=== PATIENT | male | born 1970 | race Caucasian/White ===

== ENCOUNTER 2019-01-01 02:38 | Emergency (ER) | payer BC ==
[~2019-01-01] VITALS: Ht 182.9 cm; Wt 108.9 kg
[2019-01-01] MEDS ORDERED: Prinivil10 MG PO (04:31)
== END 2019-01-01 05:12 | disposition home or self-care (01) ==
LOC: ER 02:38
DX: S89.91XA Unspecified injury of right lower leg, initial encounter (principal); I10 Essential (primary) hypertension; Z88.0 Allergy status to penicillin; X58.XXXA Exposure to other specified factors, initial encounter; Y93.61 Activity, american tackle football
CPT/HCPCS: 73562-RT; 99283-25

== ENCOUNTER 2022-01-18 09:22 | Emergency (ER) | payer BC ==
[~2022-01-18] VITALS: Ht 185.4 cm; Wt 113.4 kg
[~2022-01-18 09:22] MED LIST: Prinivil10 MG PO
[2022-01-18 10:23] LABS: BASOPHILS ABSOLUTE AUTO 0.09 K/mm3 (0.00-0.23); BASOPHILS PERCENT AUTO 2 % (0-2); EOSINOPHILS ABSOLUTE AUTO 0.11 K/mm3 (0.00-0.68); EOSINOPHILS PERCENT AUTO 2 % (0-6); Hematocrit 53.7 % (37.0-53.0); IMMATURE GRAN ABSOLUTE AUTO 0.03 K/mm3 (0.00-0.10); IMMATURE GRAN PERCENT AUTO 1 % (0-1); LYMPHOCYTES ABSOLUTE AUTO 1.13 K/mm3 (0.84-5.20); LYMPHOCYTES PERCENT AUTO 19 % (21-46); MONOCYTES ABSOLUTE AUTO 0.54 K/mm3 (0.16-1.47); MONOCYTES PERCENT AUTO 9 % (4-13); Mean Corpuscular HGB Conc 35.4 g/dL (31.5-36.5); Mean Corpuscular Volume 82 fL (80-100); NEUTROPHILS ABSOLUTE AUTO 3.92 K/mm3 (1.96-9.15); NEUTROPHILS PERCENT AUTO 67 % (41-73); Platelet Count 192 K/mm3 (150-400); RDW Coefficient Variation 12.5 % (11.7-14.2); RDW Standard Deviation 36.8 fL (35.1-46.3); Red Blood Cell Count 6.55 M/mm3 (4.30-5.90); White Blood Cell Count 5.82 K/mm3 (4.00-11.30)
[2022-01-18 10:44] LABS: Albumin, Blood 4.1 g/dL (3.4-5.0); Bilirubin, Total 0.9 mg/dL (0.1-1.0); Bun/Creatinine Ratio 19.8 (12.0-20.0); Calcium, Blood 9.1 mg/dL (8.5-10.1); Creatinine, Blood 0.86 mg/dL (0.60-1.20); Globulin, Blood 4.1 g/dL (2.2-4.0); Magnesium, Blood 1.9 mg/dL (1.6-2.4); Potassium, Blood 4.1 mmol/L (3.5-5.5); Thyroid Stimulating Hormone 1.06 uIU/mL (0.360-4.800); Total Protein, Blood 8.2 g/dL (6.4-8.2)
[2022-01-18] MEDS ORDERED: Prinivil10 MG PO (12:09)
== END 2022-01-18 12:35 | disposition home or self-care (01) ==
LOC: ER 09:22
PROVIDERS: Emergency Medicine
DX: I10 Essential (primary) hypertension (principal); I16.0 Hypertensive urgency; R00.2 Palpitations; F17.200 Nicotine dependence, unspecified, uncomplicated
CPT/HCPCS: 36415; 71045; 80053; 83735; 84443; 84484; 85025; 93005; 93010; 93246; A9270

== ENCOUNTER 2022-12-15 07:08 | Emergency (ER) | payer SELFPAY ==
[~2022-12-15] VITALS: Ht 185.4 cm; Wt 113.4 kg
[2022-12-15 07:50] VITALS: BP 198/128
[2022-12-15 08:29] LABS: BASOPHILS ABSOLUTE AUTO 0.04 K/mm3 (0.00-0.23); BASOPHILS PERCENT AUTO 1 % (0-2); EOSINOPHILS ABSOLUTE AUTO 0.19 K/mm3 (0.00-0.68); EOSINOPHILS PERCENT AUTO 3 % (0-6); Hematocrit 47.9 % (37.0-53.0); Hemoglobin 17.1 g/dL (13.5-17.5); IMMATURE GRAN ABSOLUTE AUTO 0.03 K/mm3 (0.00-0.10); IMMATURE GRAN PERCENT AUTO 1 % (0-1); LYMPHOCYTES ABSOLUTE AUTO 1.09 K/mm3 (0.84-5.20); LYMPHOCYTES PERCENT AUTO 17 % (21-46); MONOCYTES ABSOLUTE AUTO 0.46 K/mm3 (0.16-1.47); MONOCYTES PERCENT AUTO 7 % (4-13); Mean Corpuscular HGB 29.4 pg (26.0-34.0); Mean Corpuscular HGB Conc 35.7 g/dL (31.5-36.5); Mean Corpuscular Volume 82 fL (80-100); Mean Platelet Volume 11.3 fL (9.1-12.4); NEUTROPHILS ABSOLUTE AUTO 4.44 K/mm3 (1.96-9.15); NEUTROPHILS PERCENT AUTO 71 % (41-73); Platelet Count 160 K/mm3 (150-400); RDW Coefficient Variation 12.5 % (11.7-14.2); RDW Standard Deviation 37.4 fL (35.1-46.3); Red Blood Cell Count 5.82 M/mm3 (4.30-5.90); White Blood Cell Count 6.25 K/mm3 (4.00-11.30)
[2022-12-15] MEDS ORDERED: LISI20 PO (08:29)
[2022-12-15] MEDS ORDERED: ATOR10 PO (08:29)
[2022-12-15 08:43] LABS: Albumin, Blood 3.7 g/dL (3.4-5.0); Bilirubin, Total 0.9 mg/dL (0.1-1.0); Calcium, Blood 8.6 mg/dL (8.5-10.1); Creatinine, Blood 0.76 mg/dL (0.60-1.20); Globulin, Blood 3.7 g/dL (2.2-4.0); Magnesium, Blood 1.8 mg/dL (1.6-2.4); Potassium, Blood 3.8 mmol/L (3.5-5.5); Total Protein, Blood 7.4 g/dL (6.4-8.2)
== END 2022-12-15 10:44 | disposition home or self-care (01) ==
LOC: ER 07:08
PROVIDERS: Student in an Organized Health Care Education/Training Program
DX: R55 Syncope and collapse (principal); R00.2 Palpitations; R42 Dizziness and giddiness; Z72.820 Sleep deprivation; Z88.0 Allergy status to penicillin; F17.220 Nicotine dependence, chewing tobacco, uncomplicated; I10 Essential (primary) hypertension
CPT/HCPCS: 71046; 80053; 83735; 85025; 93005; 93010; 96361; 96365; 99284-25; A9270; J3475; J7030

== ENCOUNTER 2023-09-27 14:45 | Inpatient (IN) | payer SELFPAY ==
[~2023-09-27] VITALS: Ht 182.9 cm; Wt 113.5 kg
[~2023-09-27 14:45] MED LIST changes: +ATOR10 PO; +LISI20 PO
[2023-09-27 15:05] LABS: BASOPHILS ABSOLUTE AUTO 0.08 K/mm3 (0.00-0.23); BASOPHILS PERCENT AUTO 1 % (0-2); EOSINOPHILS ABSOLUTE AUTO 0.16 K/mm3 (0.00-0.68); EOSINOPHILS PERCENT AUTO 2 % (0-6); Hematocrit 49.6 % (37.0-53.0); IMMATURE GRAN ABSOLUTE AUTO 0.06 K/mm3 (0.00-0.10); IMMATURE GRAN PERCENT AUTO 1 % (0-1); LYMPHOCYTES ABSOLUTE AUTO 2.31 K/mm3 (0.84-5.20); LYMPHOCYTES PERCENT AUTO 24 % (21-46); MONOCYTES ABSOLUTE AUTO 0.86 K/mm3 (0.16-1.47); MONOCYTES PERCENT AUTO 9 % (4-13); Mean Corpuscular HGB 29.7 pg (26.0-34.0); Mean Corpuscular HGB Conc 36.3 g/dL (31.5-36.5); Mean Corpuscular Volume 82 fL (80-100); Mean Platelet Volume 11.2 fL (9.1-12.4); NEUTROPHILS PERCENT AUTO 64 % (41-73); Platelet Count 223 K/mm3 (150-400); RDW Coefficient Variation 12.5 % (11.7-14.2); RDW Standard Deviation 36.7 fL (35.1-46.3); Red Blood Cell Count 6.06 M/mm3 (4.30-5.90); White Blood Cell Count 9.67 K/mm3 (4.00-11.30)
[2023-09-27] MEDS ORDERED: Ondansetron HCl 2 MG / ML 2ML Vial IV ONE (15:30)
[2023-09-27 15:37] LABS: Alanine Aminotransfer (ALT/SGP 51 U/L (12-78); Albumin, Blood 4.1 g/dL (3.4-5.0); Albumin/Globulin Ratio 1.1 (0.8-1.8); Alk Phos 104 U/L (50-136); Anion Gap 11 mmol/L (3-11); Aspartate Aminotrans (AST/SGOT 47 U/L (12-37); Bilirubin, Total 0.7 mg/dL (0.1-1.0); Blood Urea Nitrogen 19 mg/dL (8-24); Bun/Creatinine Ratio 17.1 (12.0-20.0); CO2, Blood 22 mmol/L (21-32); Calcium, Blood 8.3 mg/dL (8.5-10.1); Chloride, Blood 108 mmol/L (98-108); Cholesterol 278 mg/dL (50-200); Creatinine, Blood 1.11 mg/dL (0.60-1.20); Globulin, Blood 3.9 g/dL (2.2-4.0); Glomerular Filtration Rate 80 (60-); Glucose, Blood 146 mg/dL (70-99); HDL Cholesterol 31 mg/dL (>39); LDL/HDL RATIO Unable to Calculate; Low Density Lipoprotein Chol Unable to Calculate mg/dL (0-110); Magnesium, Blood 1.9 mg/dL (1.6-2.4); Sodium, Blood 137 mmol/L (136-145); Triglycerides 648 mg/dL (30-160); Very Low Density Lipoprot Chol Unable to Calculate mg/dL (6-32)
[2023-09-27] MEDS ORDERED: Acetaminophen 325 MG TABLET PO PRN (16:30)
[2023-09-27] MEDS ORDERED: Nicotine Polacrilex 2 MG Gum PO PRN (16:30)
[2023-09-27 18:31] VITALS: BP 155/126
--- NOTE | 2023-09-27 18:54 | NUR ---
ADMIT PT ARRIVED TO PCU 2 AT 1830 VIA BED. PT STOOD UP TO TRANSFER TO PCU BED. PT IS ALERT AND ORIENTED. PT DENIES CHEST PAIN OR DISCOMFORT AT THIS TIME. VITAL SIGNS STABLE. PT ON ROOM AIR. AMIODARONE GTT INFUSING AT 1 MG/MIN. PT SPOUSE AT BEDSIDE. WILL CONTINUE TO MONITOR AND REPORT OFF TO ONCOMING RN.
[2023-09-27 19:26] LABS: Anti-Xa UFH, PHA Monitoring <0.10 IU/mL; International Normalized Ratio 1.03
[2023-09-27] MEDS ORDERED: Heparin Sodium,Porcine/0.5 NS 500 ML IV SCH (19:45)
[2023-09-27 20:10] VITALS: BP 144/107
[2023-09-27 22:00] VITALS: BP 125/96
[2023-09-27 22:30] VITALS: BP 135/105
[2023-09-27 23:00] VITALS: BP 134/123
[2023-09-27 23:30] VITALS: BP 138/108
[2023-09-28] VITALS (8 sets, daily range): BP systolic 122–152; BP diastolic 78–105
[2023-09-28 02:21] LABS: BASOPHILS ABSOLUTE AUTO 0.06 K/mm3 (0.00-0.23); BASOPHILS PERCENT AUTO 1 % (0-2); EOSINOPHILS ABSOLUTE AUTO 0.18 K/mm3 (0.00-0.68); EOSINOPHILS PERCENT AUTO 2 % (0-6); Hematocrit 47.9 % (37.0-53.0); Hemoglobin 17.1 g/dL (13.5-17.5); IMMATURE GRAN ABSOLUTE AUTO 0.06 K/mm3 (0.00-0.10); IMMATURE GRAN PERCENT AUTO 1 % (0-1); LYMPHOCYTES ABSOLUTE AUTO 2.47 K/mm3 (0.84-5.20); LYMPHOCYTES PERCENT AUTO 27 % (21-46); MONOCYTES ABSOLUTE AUTO 0.88 K/mm3 (0.16-1.47); MONOCYTES PERCENT AUTO 10 % (4-13); Mean Corpuscular HGB 29.5 pg (26.0-34.0); Mean Corpuscular HGB Conc 35.7 g/dL (31.5-36.5); Mean Corpuscular Volume 83 fL (80-100); Mean Platelet Volume 11.1 fL (9.1-12.4); NEUTROPHILS ABSOLUTE AUTO 5.42 K/mm3 (1.96-9.15); NEUTROPHILS PERCENT AUTO 60 % (41-73); Platelet Count 184 K/mm3 (150-400); RDW Coefficient Variation 12.9 % (11.7-14.2); RDW Standard Deviation 38.5 fL (35.1-46.3); White Blood Cell Count 9.07 K/mm3 (4.00-11.30)
[2023-09-28 02:39] LABS: Bun/Creatinine Ratio 17.1 (12.0-20.0); Calcium, Blood 8.4 mg/dL (8.5-10.1); Creatinine, Blood 0.99 mg/dL (0.60-1.20); Magnesium, Blood 2.1 mg/dL (1.6-2.4); Potassium, Blood 3.7 mmol/L (3.5-5.5)
[2023-09-28] MEDS ORDERED: Clarify Drug Order XX ONE (03:10)
--- NOTE | 2023-09-28 04:19 | NUR ---
SPOKE WITH DR. LOVE. PT HR HAS BEEN SETTLING IN THE LOW 50s OCCASIONALLY BRIEFLY TOUCHING THE 40s. PT CURRENTLY ON AMIO DRIP @ 16.6 MLS/HR. ORDERED TO STOP AMIO DRIP FOR TIME BEING AND REASSESS IN A COUPLE HOURS. STOPPING NOW AND WILL REASSESS IN 2 HOURS. CONTINUING TO MONITOR.
--- NOTE | 2023-09-28 04:34 | NUR ---
SHIFT SUMMARY. SHIFT HAS BEEN UNREMARKABLE. PT AOX4, PLEASANT, COOPERATIVE WITH CARE, CALLS APPROPRIATELY, ABLE TO MAKE NEEDS KNOWN. HAS CONTINUED TO DENY CHEST PAIN THROUGHOUT SHIFT. HAS BEEN RUNNING SINUS RHYTHM THROUGHOUT SHIFT. HAS BEEN RUNNING CHERYLE THROUGHOUT THIS MORNING, SEE RELATED NOTE FOR DETAILS. AMIO DRIP AND HEPARIN BOTH RUNNING THROUGHOUT MOST OF SHIFT. HAS SLEPT THROUGHOUT MOST OF SHIFT. TRANSFERS WELL TO BATHROOM WITH ONLY MINIMAL ASSISTANCE FOR LINE MANAGEMENT. BED LOCKED IN LOWEST POSITION. CALL LIGHT LEFT WTIHIN REACH. CONTINUING TO MONITOR.
[2023-09-28] MEDS ORDERED: Lisinopril 20 MG Tab PO SCH (09:00)
[2023-09-28] MEDS ORDERED: Atorvastatin 40 MG Tab PO SCH (09:00)
[2023-09-28] MEDS ORDERED: Enoxaparin 40 MG/0.4 ML SYR SC SCH (09:00)
[2023-09-28] MEDS ORDERED: Aspirin 81 MG Chew PO SCH (09:00)
[2023-09-28] MEDS ORDERED: Dose Adjust by Pharmacy XX STA (09:22)
[2023-09-28] MEDS ORDERED: Verapamil HCL 2.5 MG/ML 2ML Injection ONE (10:34)
[2023-09-28] MEDS ORDERED: NS 2,000 ML IV ONE (10:35)
[2023-09-28] MEDS ORDERED: Heparin Sodium 1000 Units/ML 10ML MDV ONE (10:35)
[2023-09-28] MEDS ORDERED: FentaNYL Citrate 50 MCG/ML 2 ML Injection ONE (10:35)
[2023-09-28] MEDS ORDERED: Midazolam HCl 1MG / ML 2ML Vial ONE (10:35)
[2023-09-28] MEDS ORDERED: NS 250 ML IV ONE (10:35)
[2023-09-28] MEDS ORDERED: Tirofiban HCL Monohydrate 3.75 MG/15 ML Vial ONE (11:34)
[2023-09-28] MEDS ORDERED: Labetalol HCL 100 MG TAB PO SCH ×2 (12:30→21:00)
--- NOTE | 2023-09-28 15:10 | NUR ---
ASSUMED CARE OF PT AT 0700 THIS AM. PT HAS BEEN NPO SINCE MIDNIGHT IN ANTICIPATION OF ANGIOGRAM TODAY. PT IS AWAKE, ALERT, ORIENTED X 4, ABLE TO USE CALL LIGHT AND MAKE NEEDS KNOWN. PT IS NOTED TO BE HYPERTENSIVE, THIS WAS LATER ADDRESSED BY DR VARMA POST [facility]. PT WENT TO [facility] @ 1103 AND RETURNED TO ROOM @ 1205. TR BAND WNL, NO STENTS PLACED PER REPORT FROM [employer] [employer] STAFF. PLAN IS FOR PT TO BE DISCHARGED TOMORROW WITH A LIFE VEST AND FOLLOW UP WITH [employer]ER GOODS INSPECTOR IN [place] FOR DEFIBULATOR PLACEMENT. PT HAS DENIED CHEST PAIN OR PRESSURE T/O THE SHIFT. TR BAND TO R WRIST FULLY RECOVERED WITHOUT ANY COMPLICATIONS NOTED. NO ACUTE CHANGES IN PT STATUS SINCE ASSUMPTION OF CARE THIS AM. WILL CONTINUE TO MONITOR.
--- NOTE | 2023-09-28 18:15 | NUR ---
NO CHANGES SINCE LAST NOTE. R TR BAND SITE REMAINS WNL. PT HAS BEEN RESTING COMFORTABLY IN BED WITH NO COMPLAINTS/NEEDS. PER [employer]ILI PEPPER GRINDER ABHIJIT, PT WILL BE FITTED FOR A LIFE VEST DEFIBRILATOR TOMORROW AFTERNOON PRIOR TO DISCHARGE. PT IS ABLE TO USE CALL LIGHT/MAKE NEEDS KNOWN. CALL LIGHT IN REACH. WILL CONTINUE TO MONTIOR AND GIVE REPORT TO NOC YAMILET RN.
[2023-09-29 04:03] VITALS: BP 136/92
[2023-09-29 04:09] LABS: BASOPHILS ABSOLUTE AUTO 0.07 K/mm3 (0.00-0.23); BASOPHILS PERCENT AUTO 1 % (0-2); EOSINOPHILS ABSOLUTE AUTO 0.18 K/mm3 (0.00-0.68); EOSINOPHILS PERCENT AUTO 2 % (0-6); Hematocrit 48.1 % (37.0-53.0); Hemoglobin 16.5 g/dL (13.5-17.5); IMMATURE GRAN ABSOLUTE AUTO 0.05 K/mm3 (0.00-0.10); IMMATURE GRAN PERCENT AUTO 1 % (0-1); LYMPHOCYTES ABSOLUTE AUTO 1.73 K/mm3 (0.84-5.20); LYMPHOCYTES PERCENT AUTO 21 % (21-46); MONOCYTES ABSOLUTE AUTO 0.93 K/mm3 (0.16-1.47); MONOCYTES PERCENT AUTO 11 % (4-13); Mean Corpuscular HGB 29.1 pg (26.0-34.0); Mean Corpuscular HGB Conc 34.3 g/dL (31.5-36.5); Mean Corpuscular Volume 85 fL (80-100); Mean Platelet Volume 11.4 fL (9.1-12.4); NEUTROPHILS ABSOLUTE AUTO 5.49 K/mm3 (1.96-9.15); NEUTROPHILS PERCENT AUTO 65 % (41-73); Platelet Count 168 K/mm3 (150-400); RDW Coefficient Variation 12.9 % (11.7-14.2); Red Blood Cell Count 5.67 M/mm3 (4.30-5.90); White Blood Cell Count 8.45 K/mm3 (4.00-11.30)
--- NOTE | 2023-09-29 05:49 | NUR ---
SHIFT SUMMARY. SHIFT HAS BEEN UNREMARKABLE, PT HAS SLEPT THROUGHOUT MOST OF SHIFT. PT AOX4, PLEASANT, COOPERATIVE WITH CARE, CALLS APPROPRIATELY, ABLE TO MAKE NEEDS KNOWN. VITALS STABLE. TELE ON THROUGHOUT SHIFT WITH NO ACUTE CHANGES OR EVENTS. CONTINUES TO DENY CHEST PAIN OR PRESSURE OF ANY KIND. INDEPENDENT WITHIN ROOM. BED LOCKED IN LOWEST POSITION. CALL LIGHT LEFT WITHIN REACH. CONTINUING TO MONITOR.
[2023-09-29 09:16] VITALS: BP 142/105
--- NOTE | 2023-09-29 10:58 | NUR ---
ASSUMED CARE OF PT AT 0700 THIS AM. NO ACUTE CHANGES REPORTED OVERNIGHT. PT DENIES CHEST PAIN, PRESSURE OR PALPITATIONS, HAS REMAINED IN SR. PLAN FOR TODAY IS TO DISCHARGE AFTER LIFE VEST ARRIVES. LIFE VEST MOLD YARN SUPERVISOR CALLED AND SPOKE WITH CHARGE NURSE ESDRAS, ACCORDING TO HIM, PT DOES NOT HAVE INSURANCE. PT/ STATES THEY DO HAVE INSURANCE AND PRODUCED INSURANCE CARD, NUMBERS IN CHART MATCH. JOS FROM CASE MANAGEMENT CONTACTED TO INVESTIGATE FURTHER. DISCHARGE ON HOLD UNTIL PT HAS LIFE VEST. SPOKE W DR VANN AND UPDATED HER ON SITUATION WELL CONCERNS ABOUT BLOOD PRESSURE CONTROL. NO NEW ORDERS. THIS RN WILL CONTACT DR VARMA TO UPDATE ON BP GOALS. CASE MANAGEMENT STATES THEY ARE UNABLE TO VERIFY INSURANCE. PT INSTRUCTED TO CALL INSURANCE PROVIDER FIRST THING TOMORROW AM FOR UO-TO-DATE INSURANCE NUMBERS. PT EDUCATED ABOUT RISKS OF LEAVING HOSPITAL WITHOUT LIFE VEST, PT VERBALIZES UNDERSTANDING AND AGREES TO STAY. PT STATES HE HAS NO OTHER NEEDS AT THIS TIME, CALL LIGHT IN REACH. WILL CONTINUE TO MONITOR.
[2023-09-29 11:25] VITALS: BP 152/108
--- NOTE | 2023-09-29 11:29 | NUR ---
DR VARMA CONTACTED ABOUT PT'S BPs. HE DOES NOT WANT TO CHANGE BP MEDS AT THIS TIME. PT UPDATED. CALL LIGHT IN REACH, WILL CONTINUE TO MONITOR.
[2023-09-29 15:45] VITALS: BP 162/112
[2023-09-29] MEDS ORDERED: Enoxaparin 40 MG/0.4 ML SYR SC SCH (16:00)
--- NOTE | 2023-09-29 18:02 | NUR ---
NO ACUTE CHANGES SINCE LAST NOTE. PT DENIES CHEST PAIN, PRESSURE OR PALPITATIONS. BLOOD PRESSURES HAVE REMAINED HIGH T/O THE DAY, PT DENIES SYMPTOMS. PLAN CONTINUES TO BE FOR PT TO DISCHARGE TOMORROW ONCE INSURANCE IS CLARIFIED AND LIFE VEST IS DELIVERED. NO NEEDS AT THIS TIME. CALL LIGHT IN REACH. WILL CONTINUE TO MONITOR AND GIVE REPORT TO NOC SHIFT RN.
[2023-09-29 20:00] VITALS: BP 151/102
[2023-09-29] MEDS ORDERED: HydrALAZINE HCl 10 MG Tab PO SCH (21:00)
[2023-09-30] VITALS: BP 139/101
[2023-09-30 04:00] VITALS: BP 146/105
--- NOTE | 2023-09-30 06:09 | NUR ---
SHIFT SUMMARY PT A&O X4, PLEASANT AND COOPERATIVE WITH CARE. VS; SBP 139-151, DBP 100 - 105, HRR SR IN 80'S, AFEBRILE, SPO2 GREATER THAN 96% ON RA. ONE TELE EVENT THIS SHIFT; AROUND 0020 PT HAD 6 BEAT RUN OF [place]. PT WAS ASLEEP IN ROOM WHEN EVENT, THIS RN ROUNDED. PT DENIES SX. NO EVENTS OF CP/PRESSURE, SOB, DIZZINESS, PALPITATIONS, N/V. PT C/O OF PAIN THAT IS "SORE AND THROBBING" IN R RADIAL SITE POST ANGIO. NO HEMATOMA NOTED. PT DENIES NUMBNESS, TINGLING. CAP REFILL WNL, COLOR WNL, PT ABLE TO MOVE FINGERS OKAY BUT C/O PAIN WHEN DOING SO. ARMBOARD STILL IN PLACE, OTHERWISE SITE IS FULLY RECOVERED. PT INDEPENDENT IN THE ROOM AND USES RESTROOM IND. PT REPORTS HAVING NORMAL BM THIS SHIFT. CALL LIGHT IN REACH, PT ABLE TO MAKE NEEDS KNOWN.
[2023-09-30 07:21] VITALS: BP 156/107
[2023-09-30 09:28] LABS: Phosphorus, Blood 2.7 mg/dL (2.5-4.9)
[2023-09-30 11:23] VITALS: BP 136/104
[2023-09-30] MEDS ORDERED: ASPI81CH PO (12:44)
[2023-09-30] MEDS ORDERED: LIPITOR80 MG PO ×2 (12:46→14:36)
[2023-09-30] MEDS ORDERED: LABE200 PO (12:53)
--- NOTE | 2023-09-30 13:06 | NUR ---
Upon receiving a referral for spiritual care, I visited the patient. He tells me about the events that led to his admission to the hospital and the current medical plan of care. He tells me about his struggles with his medical insurance from work at [employer] and while he was voicing his concerns he got a call from his union rep. to talk about how they need to proceed to deal with the insurance issues. The patient was glad to take the call and I exit to allow the patient to talk on the phone. i will continue to remain available to patient and family.
[2023-09-30 15:50] VITALS: BP 132/95
--- NOTE | 2023-09-30 18:06 | NUR ---
SHIFT SUMMARY; ASSUMED CARE AT 0700. A/A/OX4 IN NO DISTRESS. RIGHT WRIST ANGIO SITE WITH TEGADERM, NO BRUSING OR SWELLING. C/O RIGHT FOREARM PAIN AND RIGHT HAND PAIN. RADIAL PULSE PALPABLE, CAP REFILL <3. MOVES FINGERS BUT STATES FEELS STIFF. EVALUATED BY DR. VARMA 2X DURING SHIFT. VSS, MEDS PER EMAR. PLEASANT AND COOPERATIVE WITH CARE. ZOLE VEST FITTED PRIOR TO DISCHARGE. DC'D WITH SPOUSE, BELONGINGS AND [employer]LE EQUIPMENT WITH CLEAR UNDERSTANDING OF INSTRUCTIONS.
== END 2023-09-30 17:46 | disposition home or self-care (01) | DRG 321 ==
LOC: ER 14:45 → PCU 16:26
PROVIDERS: Emergency Medicine; Internal Medicine; ADMIT Family Medicine
PROC: 5A2204Z Restoration of Cardiac Rhythm, Single (ICD-10-PCS; 2023-09-27)
PROC: 027034Z Dilation of Coronary Artery, One Artery with Drug-eluting Intraluminal Device, Percutaneous Approach (ICD-10-PCS; principal; 2023-09-28)
PROC: 02C03ZZ Extirpation of Matter from Coronary Artery, One Artery, Percutaneous Approach (ICD-10-PCS; 2023-09-28)
PROC: B2111ZZ Fluoroscopy of Multiple Coronary Arteries using Low Osmolar Contrast (ICD-10-PCS; 2023-09-28)
PROC: 4A023N7 Measurement of Cardiac Sampling and Pressure, Left Heart, Percutaneous Approach (ICD-10-PCS; 2023-09-28)
DX: I47.20 Ventricular tachycardia, unspecified (principal); I21.A1 Myocardial infarction type 2; I43 Cardiomyopathy in diseases classified elsewhere; E78.5 Hyperlipidemia, unspecified; I25.10 Atherosclerotic heart disease of native coronary artery without angina pectoris; I11.9 Hypertensive heart disease without heart failure; F17.220 Nicotine dependence, chewing tobacco, uncomplicated; Z88.0 Allergy status to penicillin; Z79.811 Long term (current) use of aromatase inhibitors; Z98.890 Other specified postprocedural states; Z79.899 Other long term (current) drug therapy
CPT/HCPCS: 36415; 71045; 76937; 80048; 80053; 80061; 83735; 84100; 84132; 84443; 84484; 85025; 85520; 85610; 85730; 93005; 93010; 93306; 93458; 96365; 96375; 99152; 99153; 99285-25; A9270; C1769; C1887; C1894; J0282; J1644; J1650; J2250; J2405; J3010; J3246; J7030; J7050; J7060; Q9967